=== PATIENT | male | born 1980 | race Two or more races ===

== ENCOUNTER 2017-02-01 21:55 | Emergency (ER) | payer SELFPAY ==
[2017-02-01] MEDS ORDERED: NO MEDICATIONS (22:25)
== END 2017-02-02 01:00 | disposition home or self-care (01) ==
LOC: SED 21:55
DX: S05.01XA Injury of conjunctiva and corneal abrasion without foreign body, right eye, initial encounter (principal); W22.8XXA Striking against or struck by other objects, initial encounter
CPT/HCPCS: 90471; 90715; 99283